=== PATIENT | female | born 1990 | race Caucasian/White ===

== ENCOUNTER → 2020-07-15 11:48 | Outpatient (CLI) | payer BC, SELFPAY ==
--- NOTE | ~2020-07-15 | US_ITS ---
EXAMINATION: US OB transvaginal EXAM DATE: 07/15/2020 12:18 INDICATION: For dating. . 1st trimester. TECHNIQUE: Pelvic obstetrical transvaginal sonogram was performed by a technologist. There are [facility] grayscale and Doppler images available for interpretation. There are no earlier studies of this gestation for comparison. FINDINGS: Uterus measures 10.4 x 5.4 x 6.1 cm. There is intrauterine gestation sac. There is a small pole identified. The 3 mm crown-rump length corresponds to estimated gestational age by ultras ound of 5 weeks 6 days. Could not confirm heart rate at this time. Yolk sac is identified. There is no sonographic evidence of subchorionic hemorrhage. Ovaries are morphologically normal. IMPRESSION: Early intrauterine gestation, age by ultrasound 5 weeks 6 days. Could not confirm heart rate, most likely due to small crown-rump length. Reviewed, dictated and finalized at location A. IMPRESSION: Early intrauterine gestation, age by ultrasound 5 weeks 6 days. Co uld not confirm heart rate, most likely due to small crown-rump length.
== END ==
PROVIDERS: Visit Provider Nurse Practitioner
DX: O26.21 Pregnancy care for patient with recurrent pregnancy loss, first trimester (principal); Z3A.01 Less than 8 weeks gestation of pregnancy
CPT/HCPCS: 76817

== ENCOUNTER → 2020-07-26 15:28 | Outpatient (CLI) | payer BC, SELFPAY ==
--- NOTE | ~2020-07-26 | US_ITS ---
EXAMINATION: US OB transvaginal DATE: 07/26/2020 16:00 INDICATION: Recurrent loss. Evaluate well-being. TECHNIQUE: Real-time transabdominal and transvaginal obstetric ultrasound. FINDINGS: Comparison ultrasound dated 07/15/2020 The uterus measures 11.2 x 6.6 x 6.7 cm. There is an intrauterine gestational sac, with pole id entified. The crown rump length measures 1.28 cm, which correlates with a estimated gestational age of 7 weeks 3 days. heart tones are identified measuring 162 BPM. There is a corpus luteal cys t of the right ovary measuring 1.8 cm. Left ovary is unremarkable. IMPRESSION: 1. SL IUP with an EGA of 7 weeks, 3 days (EDC by current ultrasound of 03/11/2021). Reviewed, dictated and finalized at location A. IMPRESSION: 1. SL IUP with an EGA of 7 weeks, 3 days (EDC by current ultrasound of 03/11/19).
== END ==
PROVIDERS: Visit Provider Obstetrics & Gynecology Gynecology
DX: O26.21 Pregnancy care for patient with recurrent pregnancy loss, first trimester (principal); Z3A.01 Less than 8 weeks gestation of pregnancy
CPT/HCPCS: 76817

== ENCOUNTER → 2020-10-11 10:49 | Outpatient (CLI) | payer BC, SELFPAY ==
--- NOTE | ~2020-10-11 | US_ITS ---
EXAMINATION: US OB /maternal detail DATE: 10/11/2020 11:28 INDICATION: Second trimester anatomic survey TECHNIQUE: Real-time ultrasound of the pelvis was performed. COMPARISON: None. FINDINGS: There is a single living fetus in vertex presentation. The placenta is anterior and 4 cm from the int ernal cervical os. heart rate is 154 beats per minute (bpm). cardiac activity and movement are noted. The amniotic fluid index is subjectively normal. The following anatomy was identified as normal: 4 chamber heart 3 vessel cord cord insertion kidneys urinary bladder stomach spine diaphragm ventricles cisterna magna cerebellum The following biometric data were obtained: Biparietal diameter (BPD): 4.3 cm; head circumference (HC): 16.3 cm; abdominal circumference (AC): 13 .3 cm; femur length (FL): 2.5 cm. These measurements are concordant. Estimated weight is 239 g +/- 35 g, which correlates with the 45th percentile when 03/11/2021 is used as estimated date of delivery. As single measurements, these parameters are each equal to the following estimated gestational ages w ith ranges of +/- 2 standard deviations: BPD: 19 weeks 0 days ( 17 weeks 2 days - 20 weeks 5 days). HC: 19 weeks 1 days ( 17 weeks 4 days - 20 weeks 4 days). AC: 18 weeks 6 days ( 16 weeks 5 days - 20 weeks 6 days). FL: 17 weeks 6 days ( 16 weeks 3 days - 19 weeks 1 days). estimated gestational age based solely on measurements from this exam is 18 weeks 5 days +/- 1 weeks 2 days. IMPRESSION: 1. Single living fetus in vertex presentation. 2. Estimated weight is 239 g +/- 35 g, which correlates with the 45th percentile when 03/11/2021 is used as estimated date of delivery. Reviewed, dictated and finalized at location B. IMPRESSION: 1. Single living fetus in vertex presentation. 2. Estimated weight is 239 g +/- 35 g, which correlates with the 45th per centile when 03/11/2021 is used as estimated date of delivery.
== END ==
PROVIDERS: Visit Provider Obstetrics & Gynecology Gynecology
DX: Z36.9 Encounter for antenatal screening, unspecified (principal); Z3A.18 18 weeks gestation of pregnancy
CPT/HCPCS: 76805

== ENCOUNTER 2021-03-01 07:46 | Observation (INO) | payer BC, SELFPAY ==
[2021-03-01 08:41] VITALS: BP 130/66; PULSE 86
--- NOTE | 2021-03-01 08:48 | OBADM ---
This patient, Ada Parra, admitted to the OB room Labor/Delivery/Recovery 105 for observation. Patient/family oriented to hospital policies and general routines including ID bracelet, bed and alarms, visiting hours, pain management, procedures, bathroom and other care routines, personal items, smoking policy, room service/diet, and visiting hours. Patient/Family are encouraged to report perceived risks to care and to ask questions if they do not understand what they are told or what they should do.
--- NOTE | 2021-03-07 10:19 | PM.OBTRLD ---
OB - Triage/Final Diagnosis Visit Information Reason for evaluation: threatened labor and other (Leaking fluid) Comments/Additional reasons for admission: I have assessed the risk for this patient, Ada Parra, and determined that she would benefit from observation care.
== END 2021-03-01 08:53 | disposition home or self-care (01) ==
PROVIDERS: Admitting Provider Obstetrics & Gynecology Gynecology; PCP Physician Assistant Medical; Visit Provider Obstetrics & Gynecology Gynecology
DX: O47.9 False labor, unspecified (principal); O42.919 Preterm premature rupture of membranes, unspecified as to length of time between rupture and onset of labor, unspecified trimester; Z3A.00 Weeks of gestation of pregnancy not specified
CPT/HCPCS: 59025; 84112; G0378; G0379

== ENCOUNTER 2021-03-04 10:22 | Inpatient (IN) | payer BC, SELFPAY ==
[2021-03-04] VITALS (117 sets, daily range): BP systolic 79–137; BP diastolic 32–111; PULSE 70–119; RESP 18; TEMP 36.6–37.1; O2SAT 95–100; BMI 32.0
--- NOTE | 2021-03-04 11:21 | LDADM ---
This patient, Ada Parra, was admitted to Labor/Delivery/Recovery 103 on 03/04/21 at 10:22. Plans for labor, pain management and were discussed with patient. Patient/family oriented to hospital policies and general routines including ID bracelet, bed and alarms, visiting hours, pain management, procedures, bathroom and other care routines, personal items, smoking policy, room service/diet and guest tray routines, security routines, and visiting hours. Patient/Family are encouraged to report perceived risks to care and to ask questions if they do not understand what they are told or what they should do. See OBIX for further documentation.
[2021-03-04] MEDS: OXYTOCIN 30 UNITS/NS 500 ML 30 UNITS/500 ML BAG IV CONT (11:32)
[2021-03-04 12:06] LABS: Basophils Percent Auto 0.4 % (0.2-1.2); Eosinophils Percent Auto 0.4 % (0-4.4); Hematocrit 33.2 % (37.0-47.0); Hemoglobin 11.2 g/dL (12.0-15.0); Immature Granulocyte Percent A 1.1 % (0-0.5); Lymphocytes Absolute Auto 1.56 K/mm3 (0.9-3.2); Lymphocytes Percent Auto 16.7 % (18.3-44.2); Mean Corpuscular HGB Conc 33.7 g/dl (32-36); Mean Corpuscular Hemoglobin 31.1 pg (26-34); Mean Corpuscular Volume 92.2 fl (80-100); Mean Platelet Volume 10.7 fl (7.4-10.4); Monocytes Absolute Auto 0.9 K/mm3 (0.1-0.6); Monocytes Percent Auto 9.6 % (2.6-8.5); Neutrophils Absolute Auto 6.7 K/mm3 (1.3-6.7); Neutrophils Percent Auto 71.8 % (45.5-73.1); Platelet Count Result 168 k/mm3 (150-375); Red Cell Distribution Width 13.2 % (11.5-14.5); White Blood Count 9.3 K/mm3 (4.5-10.0)
[2021-03-04] MEDS: LACTATED RINGERS 1,000 ML 125 ML IV CONT (12:32)
--- NOTE | 2021-03-04 12:55 | WPDOBADMIT ---
Obstetrics - Admit Note Admission Note: record reviewed. No pertinent additions to the history and/or any subsequent changes in the physical findings that are not consistent with the expected course of the were found. Additions to the history and/or subsequent changes in the physical findings follow. None.Here for MIL at 39 wks. Cervix 3-4/50/-2 AROM with clear fluid. FHTs reactive.
--- NOTE | 2021-03-04 18:02 | PM.OBPRVD ---
OB - Delivery Note Procedure Delivery date: 03/04/21 events: Labor Induction Intrapartal events: None Induction method: AROM and per pitocin protocol Delivery monitor: external FHT and external uterine Route of delivery: Laceration Description: None Specimen: No Quantitative Blood Loss (ml): 50 Anesthesia type: Epidural Disposition: floor [place] Baby Date of : 03/04/21 Weeks of gestation at delivery: 39 gender: Male Weight (pounds): 9 Weight (ounces): 8 presentation: vertex position: Right Occiput Anterior Placenta delivery description: Spontaneous cord vessel description: 3 Vessels score one minute: 9 score five minutes: 9
--- NOTE | 2021-03-04 18:03 | PM.OBDSVD ---
DS: Admitting Diagnosis Discharge Date 03/05/21 Admitting Diagnosis IUP 39 wks; MIL DS: Discharge Diagnosis Discharge Diagnosis (1) (normal spontaneous vaginal delivery): Code(s): O80 - Encounter for full-term uncomplicated delivery Status: Acute OB - DS: Summary OB Procedures : Ultrasound OB Procedures Intrapartum: Spontaneous Vag Delivery OB Procedures: : None Peripartum Data Infant Delivery Method: Natural Vaginal Laceration Description: None complications: none Status at Discharge Functional status at discharge: independent ambulation Overall status at discharge: patient is progressing back to baseline Time Spent with Patient Time attestation: Total time spent providing and/or coordinating discharge services: DS: Data Data Completed and Pending Labs on day of discharge: Labs from last 24 hours 03/04/21 03/04/21 03/04/21 11:56 11:56 11:56 WBC 9.3 RBC 3.60 L Hgb 11.2 L Hct 33.2 L MCV 92.2 MCH 31.1 MCHC 33.7 RDW 13.2 Plt Count 168 MPV 10.7 H Immature Gran % (Auto) 1.1 H Neut % (Auto) 71.8 Lymph % (Auto) 16.7 L [place] % (Auto) 9.6 H Eos % (Auto) 0.4 Baso % (Auto) 0.4 Lymph # (Auto) 1.56 [place] # (Auto) 0.9 H Eos # (Auto) 0.0 Baso # (Auto) 0.0 Abs Immat Gran (auto) 0.10 H Absolute Neuts (auto) 6.7 Absolute Nucleated RBC 0.0 Nucleated RBC % 0.0 RPR Pending Blood Type O Positive Antibody Screen Negative Discharge Plan Discharge Attending physician on discharge: Siobhan Smith Discharging Clinician: Vera Tate Anticipated Discharge Date/Time: 03/06/21 10:00 Patient Disposition: Home, Self-Care Activity: may shower and pelvic rest Diet: regular Discharge Instructions: Plans IUD for control Education: Mom and Baby Guide Given to: Mother Follow-Up: Call your delivering provider's office for an appointment to be seen in: 6 Weeks Mom and baby should come to the [facility] for the follow-up appointment. Appointment Date/Time:Monday, March 08, 2021 at 11:00 am What to expect at your follow-up visit: Blood Pressure Check Physical Assessment Call [phone] if you are unable to keep your appointment time. BREAST CARE: * Wear a snug supportive bra. * For engorgement discomfort: Breast Feeding: * Apply warm moist washcloths * Express milk as needed to relieve engorgement * Wear loose clothing * For sore nipples: * Identify correct latch-on * Apply warm moist washcloths before and after nursing * Air dry nipples after nursing * May apply Lansinoh cream to nipples EPISIOTOMY/PERINEAL CARE: * Until bleeding stops, use your art bottle after urinating * Change your pad frequently throughout the day * You may take sitz baths several times a day (fill your bathtub with warm water and soak for 20 minutes.) Do NOT bathe in the water * No tub baths until seen by your physician - You may shower ACTIVITY: * Rest as much as possible. * Do not exercise or lift anything heavier than your baby (such as laundry or other children.) * Avoid stairs or driving as much as possible. * Do not put anything into the vagina. No douching, tampons, or sexual activity until seen by physician. NOTIFY PHYSICIAN IF YOU HAVE ANY QUESTIONS OR IF ANY OF THE FOLLOWING SYMPTOMS OCCUR: * If your vaginal bleeding becomes foul smelling. * If your vaginal bleeding becomes more heavy than a period or if your bleeding changes from pink to bright red. However, you may pass an occasional walnut-sized clot once or twice for the first week . * If you experience a sharp, shooting pain in you calves. * If you discover a hard, reddened area on your breast or if you experience flu-like symptoms. DIET: * Eat regular, well-balanced meals. * Drink plenty o
[2021-03-04] MEDS: OXYTOCIN 30 UNITS/NS 500 ML 30 UNITS/500 ML BAG 125 UNITS IV CONT (18:27)
[2021-03-04] MEDS: METHYLERGONOVINE MALEATE 0.2 MG/ML VIAL IM (19:19)
[2021-03-05] VITALS: BP 117/70; PULSE 74; RESP 18; TEMP 37; O2SAT 97
[2021-03-05] MEDS: IBUPROFEN 600 MG TABLET PO ×3 (04:23→19:10)
[2021-03-05 04:38] VITALS: BP 102/63; PULSE 87; RESP 18; TEMP 37.1; O2SAT 98
[2021-03-05 04:47] LABS: Hematocrit 32.6 % (37.0-47.0); Hemoglobin 11.1 g/dL (12.0-15.0)
--- NOTE | 2021-03-05 07:25 | PC.NURSE ---
Pt introductions made and plan of care discussed per post , pain management, breast feeding, daily care activities. PT and fob both recipients of such instructions and verbalized understanding of such care. PT and fob both received instructions per one to one discussion, mom baby care guide and demonstrations this shift PT verbalized understanding of such care.
[2021-03-05 09:00] VITALS: BP 104/60; PULSE 84; RESP 18; TEMP 36.6; O2SAT 98
--- NOTE | 2021-03-05 11:14 | P.PNOB_ITS ---
OB - PN: Subj Subjective Date/time seen: 03/05/21 10:11 Narrative: PPD#1 Ada reports doing well today. 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 Her pain is controlled. She is tolerating regular diet, voiding, and ambulating without issues. She has not passed gas. She is breast feeding. She would like her son circumcised. She would like to go home tomorrow. OB - PN: Obj Data Labs CBC & Chem 7: 03/05/21 04:18 Labs: Laboratory Results - last 24 hr 03/04/21 03/04/21 03/05/21 11:56 11:56 04:18 WBC 9.3 RBC 3.60 L Hgb 11.2 L 11.1 L Hct 33.2 L 32.6 L MCV 92.2 MCH 31.1 MCHC 33.7 RDW 13.2 Plt Count 168 MPV 10.7 H Immature Gran % (Auto) 1.1 H Neut % (Auto) 71.8 Lymph % (Auto) 16.7 L [place] % (Auto) 9.6 H Eos % (Auto) 0.4 Baso % (Auto) 0.4 Lymph # (Auto) 1.56 [place] # (Auto) 0.9 H Eos # (Auto) 0.0 Baso # (Auto) 0.0 Abs Immat Gran (auto) 0.10 H Absolute Neuts (auto) 6.7 Absolute Nucleated RBC 0.0 Nucleated RBC % 0.0 Blood Type O Positive Antibody Screen Negative OB - PN A/P Assessment and Plan (1) (normal spontaneous vaginal delivery): Code(s): O80 - Encounter for full-term uncomplicated delivery Status: Acute Plan day: 1 Plan: routine care and discharge home (tomorrow) Time Spent With Patient Time: Total time spent is greater than 50% in coordination of care (as documented) at patient's floor/unit and/or counseling patient: Review of Systems Constitutional: Constitutional: Denies chills, Denies fever(s) and Denies headache(s) Eyes: Eyes: Denies change in vision ENT: Denies dizziness and Denies headache(s) Cardiovascular: Cardiovascular: Denies chest pain, Denies palpitations and Denies dyspnea Respiratory: Respiratory: Denies cough and Denies dyspnea Gastrointestinal: Gastrointestinal: Denies nausea and Denies vomiting Neurologic: Denies dizziness and Denies headache(s) Endocrine: Endocrine: Denies palpitations Exam Const: General: cooperative, comfortable and no acute distress Orientation/consciousness: patient oriented x3 Resp: Effort & Inspection: normal respiratory effort Auscultation: clear to auscultation bilaterally Cardio: Rate: regular rate GI: Inspection: non-distended GI Palp: No abdominal tenderness and Yes Soft to palpation Auscultation: normal bowel sounds : Other: fundus firm Skin: General skin exam: normal color Neuro: General: patient oriented x3 Extrem: General: normal to inspection Psych: Appearance: grossly normal Affect: normal affect Attitude: cooperative
[2021-03-05] MEDS: ACETAMINOPHEN 325 MG TABLET 650 MG PO ×2 (12:53→19:10)
[2021-03-05] MEDS: DOCUSATE SODIUM 100 MG CAPSULE PO (12:54)
[2021-03-05 12:55] VITALS: BP 105/67; PULSE 82; RESP 18; TEMP 36.5; O2SAT 98
[2021-03-05] MEDS: MULTIVIT/MIN/PREN/FOL AC/IRON TABLET 1 TAB PO (12:55)
[2021-03-05 20:00] VITALS: BP 106/63; PULSE 74; RESP 16; TEMP 36.9; O2SAT 99
[2021-03-06] MEDS: ACETAMINOPHEN 325 MG TABLET 650 MG PO (05:44)
[2021-03-06] MEDS: IBUPROFEN 600 MG TABLET PO (05:44)
[2021-03-06] MEDS: MULTIVIT/MIN/PREN/FOL AC/IRON TABLET 1 TAB PO (07:58)
[2021-03-06] MEDS: DOCUSATE SODIUM 100 MG CAPSULE PO (07:58)
[2021-03-06] MEDS: LANOLIN (LANSINOH) 7.5 GM CREAM 1 APPLIC TOPICAL (07:58)
[2021-03-06 08:00] VITALS: BP 110/79; PULSE 77; RESP 18; TEMP 36.3; O2SAT 100
--- NOTE | 2021-03-06 08:00 | PC.NURSE ---
Patient was given the opportunity to view the discharge video Mother & Baby Care, The First Two Weeks and to ask questions. Patient declined viewing the video and has been given the mother/baby guide for home reference.
[2021-03-06] MEDS: WITCH HAZEL 40 PADS 1 PAD TOPICAL (08:14)
[2021-03-06] MEDS: BENZOCAINE 20% AER SPR (*SP) 56 GM CAN 1 SPRAY TOPICAL (08:14)
--- NOTE | 2021-03-06 08:57 | PM.OBDSVD ---
DS: Admitting Diagnosis Discharge Date 03/06/21 Admitting Diagnosis induction of labor DS: Discharge Diagnosis Discharge Diagnosis (1) (normal spontaneous vaginal delivery): Code(s): O80 - Encounter for full-term uncomplicated delivery Status: Acute OB - DS: Summary OB Procedures : Ultrasound OB Procedures Intrapartum: Spontaneous Vag Delivery OB Procedures: : None Peripartum Data Infant Delivery Method: Natural Vaginal Laceration Description: None complications: none [place] 1: Gender: Male Disposition of : home Status at Discharge Functional status at discharge: independent ambulation Overall status at discharge: patient is back to baseline Time Spent with Patient Time attestation: Total time spent providing and/or coordinating discharge services: Exam Const: General: cooperative, healthy appearing, comfortable and no acute distress Orientation/consciousness: patient oriented x3 Resp: Effort & Inspection: normal respiratory effort Auscultation: clear to auscultation bilaterally Cardio: Rate: regular rate GI: Inspection: non-distended GI Palp: No abdominal tenderness and Yes Soft to palpation Auscultation: normal bowel sounds : Other: fundus firm Skin: General skin exam: normal color Neuro: General: patient oriented x3 Extrem: General: normal to inspection Psych: Appearance: grossly normal Affect: normal affect Attitude: cooperative Discharge Plan Discharge Attending physician on discharge: Siobhan Smith Discharging Clinician: Vera Tate Anticipated Discharge Date/Time: 03/06/21 10:00 Patient Disposition: Home, Self-Care Activity: may shower and pelvic rest Diet: regular Discharge Instructions: Plans IUD for control Education: Mom and Baby Guide Given to: Mother Follow-Up: Call your delivering provider's office for an appointment to be seen in: 6 Weeks Mom and baby should come to the [facility] for the follow-up appointment. Appointment Date/Time:Monday, March 08, 2021 at 11:00 am What to expect at your follow-up visit: Blood Pressure Check Physical Assessment Call [phone] if you are unable to keep your appointment time. BREAST CARE: * Wear a snug supportive bra. * For engorgement discomfort: Breast Feeding: * Apply warm moist washcloths * Express milk as needed to relieve engorgement * Wear loose clothing * For sore nipples: * Identify correct latch-on * Apply warm moist washcloths before and after nursing * Air dry nipples after nursing * May apply Lansinoh cream to nipples EPISIOTOMY/PERINEAL CARE: * Until bleeding stops, use your art bottle after urinating * Change your pad frequently throughout the day * You may take sitz baths several times a day (fill your bathtub with warm water and soak for 20 minutes.) Do NOT bathe in the water * No tub baths until seen by your physician - You may shower ACTIVITY: * Rest as much as possible. * Do not exercise or lift anything heavier than your baby (such as laundry or other children.) * Avoid stairs or driving as much as possible. * Do not put anything into the vagina. No douching, tampons, or sexual activity until seen by physician. NOTIFY PHYSICIAN IF YOU HAVE ANY QUESTIONS OR IF ANY OF THE FOLLOWING SYMPTOMS OCCUR: * If your vaginal bleeding becomes foul smelling. * If your vaginal bleeding becomes more heavy than a period or if your bleeding changes from pink to bright red. However, you may pass an occasional walnut-sized clot once or twice for the first week . * If you experience a sharp, shooting pain in you calves. * If you discover a hard, reddened area on your breast or if you experience flu-like symptoms. DIET: * Eat regular, well-balanced meals. * Drink plenty of fluids daily. If breastfe
--- NOTE | 2021-03-06 09:15 | PC.NURSE ---
Self care and infant care discharge instructions given including follow up visit date and time. Very pleasant. No questions or concerns voiced. FOB at side.
[2021-03-07 09:28] LABS: Rapid Plasma Reagin Non-Reactive (NonReactive)
[2021-03-08 10:51] VITALS: BP 115/74; PULSE 84; RESP 16; TEMP 36.8; O2SAT 98
== END 2021-03-06 10:20 | disposition home or self-care (01) | DRG 807 ==
LOC: ANHLDR 18:05 → ANHOB2 03-05 11:16 → ANHLDR 03-09 09:37 → ANHOB2 03-09 09:37
PROVIDERS: Admitting Provider Obstetrics & Gynecology Gynecology; PCP Physician Assistant Medical; Visit Provider Obstetrics & Gynecology
DX: O80 Encounter for full-term uncomplicated delivery (principal); Z37.0 Single live birth; Z3A.39 39 weeks gestation of pregnancy
CPT/HCPCS: 36415; 85014; 85018; 85025; 86592; 86850; 86900; 86901; A9270; J2210; J2590; J2795; J7120